=== PATIENT | female | born 1980 | race Caucasian/White ===

== ENCOUNTER 2019-05-13 05:45 | Day surgery (SDC) | payer BC ==
--- NOTE | 2019-05-10 09:58 | RAD REPORT ---
EXAM DESCRIPTION: RAD - Chest Pa And Lat (2 Views) - 05/10/2019 9:49 am CLINICAL HISTORY: pre-op, pending right shoulder surgery COMPARISON: None. TECHNIQUE: PA and lateral views of the chest were obtained. FINDINGS: The lungs are clear. Heart size is normal and central vasculature is within normal limit s. No pleural effusion or pneumothorax seen. No acute bony finding noted. Widening of the left AC j oint is noted. No aortic abnormality. IMPRESSION: No acute cardiopulmonary process.
--- NOTE | 2019-05-10 10:16 | EKG ---
Test Date: 2019-05-10 Test Time: 09:32:45 Demand Equipment Repairer: SHAHNAZ MEASUREMENT RESULTS: Intervals: Rate: 51 NH: 162 QRSD: 82 QT: 458 QTc: 422 [place]: P: 47 NH: 162 QRS: 26 T: 26 INTERPRETIVE STATEMENTS: Sinus bradycardia Otherwise normal ECG No previous ECG available for comparison Electronically Signed On 05-10-19 10:15:54 CDT by Jovanny James
[2019-05-13] MEDS ORDERED: Ringers Lactate 1,000 ML IV ONE ×2 (06:00→07:05)
[2019-05-13] MEDS ORDERED: CEFAZOLIN/SWI 2gm 2 GM/20 ML SYR ONE (06:00)
[2019-05-13] MEDS ORDERED: LIDOCAINE 2% MPF 5 ML VIAL ONE (06:35)
[2019-05-13] MEDS ORDERED: PROPOFOL 200 MG/20 ML VIAL IV ONE (06:35)
[2019-05-13] MEDS ORDERED: FENTANYL CITR 100 MCG/2 ML ONE (06:35)
[2019-05-13] MEDS ORDERED: ROCURONIUM 50 MG/5 ML VIAL IV ONE (06:35)
[2019-05-13] MEDS ORDERED: MIDAZOLAM HCL 2 MG/2 ML INJ ONE (06:35)
[2019-05-13] MEDS ORDERED: ROPLVACAINE HCL 20 ML ONE (06:43)
[2019-05-13] MEDS ORDERED: dexAMETHasone 10 MG/ML VIAL ONE ×2 (06:43→08:00)
[2019-05-13] MEDS ORDERED: EPINEPHRINE/PF 1 MG/ML AMP ONE (07:05)
[2019-05-13] MEDS ORDERED: Phenylephrine HCl 10 MG/ML 1 ML VIAL ONE (07:48)
[2019-05-13] MEDS ORDERED: NS 0.9% VIAL 20 ML ONE (07:48)
[2019-05-13] MEDS ORDERED: KETOROLAC 30 MG/ML INJ ONE (08:00)
[2019-05-13] MEDS ORDERED: EPHEDRINE SULF 50 MG/ML VIAL ONE (08:06)
[2019-05-13] MEDS ORDERED: ONDANSETRON 4 MG/2 ML VIAL ONE (08:06)
[2019-05-13] MEDS ORDERED: GLYCOPYRROLATE 0.2 MG/ML SYR ONE (08:39)
[2019-05-13] MEDS ORDERED: NEOSTIGMINE 1 MG/ML -10 ML VIAL ONE (08:39)
[2019-05-13] MEDS ORDERED: MEPERIDINE HCL 25 MG/0.5 ML ONE (09:27)
--- NOTE | 2019-05-13 10:23 | RAD REPORT ---
EXAM DESCRIPTION: RAD - Shoulder 1 View - 05/13/2019 9:41 am CLINICAL HISTORY: POST RIGHT SHOULDER ARTHROSCOPIC ROTATOR CUFF DEBR COMPARISON: No comparisons FINDINGS: No bone or joint abnormality is seen. Mild soft tissue swelling is evident. Mild atelectas is seen in the right lung base.
--- NOTE | 2019-05-13 10:43 | P.BOP ---
Preoperative diagnosis: right shoulder impingement syndrome, partial rotator cuff tear Postoperative diagnosis: same Primary procedure: right shoulder arthroscopic subacromial decompression Secondary procedure: right shoulder arthroscopic rotator cuff debridement Hand Inserter Operator: NONE,NONE Estimated blood loss: <10 cc Specimen: none Findings: see dictation Anesthesia: General Complications: None Implants: none Fluids & blood products: per anesthesia record Transferred to: Recovery Room Condition: Good
[2019-05-13 11:33] VITALS: TEMP 97
[2019-05-13 11:38] VITALS: BP 133/62; O2SAT 100
--- NOTE | 2019-05-13 23:58 | OP ---
Date of Procedure: 05/13/2019 Surgeon: Bubba Pan MD Preoperative Diagnoses: 1.Right shoulder impingement syndrome. 2.Right shoulder partial rotator cuff tear. Postoperative Diagnoses: 1.Right shoulder impingement syndrome. 2.Right shoulder partial rotator cuff tear. Procedure Performed: 1.Right shoulder arthroscopic rotator cuff debridement. 2.Right shoulder arthroscopic subacromial decompression. Anesthesia: General endotracheal with right-sided interscalene block. Complications: None. Implants: None. Fluids: Per anesthesia record. Estimated Blood Loss: 10 mL. Indication For The Procedure: Rebeca is a 38-year-old female who presented to my clinic with signs and symptoms and x-ray findings and MRI findings consistent with an impingement syndrome and partial rotator cuff tear. She failed conservative treatment measures including exercise program as well as corticosteroid injection. I discussed with the patient at length risks and benefits associated with operative and nonoperative treatment. She expressed understanding and elected to proceed with opera tive treatment. Description Of Procedure: After informed consent was obtained, the patient was identified in the pre operative holding area. The right upper extremity was marked. Patient was then brought back to the PACU where she underwent an interscalene block to the right upper extremity performed by Anesthesia. She was then taken back to the operating room, transferred to the operating table in a supine fashio n, and placed under general endotracheal anesthesia. She was then placed in the beach chair position with her extremities well padded. The right upper extremity was then examined. The patient had ful l range of motion of her shoulder and no instability noted. The right upper extremity was then prepp ed and draped in usual sterile fashion. A time-out was initiated. Correct patient and procedure wer e confirmed and identified. The patient had received preoperative prophylactic antibiotics. Via the posterior portal position, a spinal needle was introduced in the glenohumeral joint and it was injec abdelrahman with 30 mL of normal saline to distend the capsule. A posterior portal was created and an arthro scope was brought in the posterior portal position. An anterior portal was then created under direct visualization and the cannula was placed. Diagnostic arthroscopy was then performed. Patient was n oted to have to overall pristine cartilage in the humeral head and glenoid surface. The anterior and posterior labrum were found to be stable without tear. The superior labrum was also found to be sta ble without tear. The biceps anchor and biceps tendon were found to be without significant tenosynov itis and without any fissuring or fraying, any obvious tear. There were no loose bodies found on the axillary pouch. Subscapularis was found to be intact without tear. Anterior supraspinatus was note d to have some mild fraying consistent with a very small partial thickness undersurface tear which wa s debrided using arthroscopic shaver. The arthroscope was then brought back in the subacromial space . A lateral portal was then created. A subacromial bursectomy was performed using arthroscopic shav er and radiofrequency ablator. The undersurface of the acromion was then debrided using the radiofre quency ablator to clean any soft tissue on the undersurface of the acromion. It was noted that the p atient did have some inferior acromial spurring. Acromioplasty was performed using an arthroscopic b ur and this was used to debride the spurring off the undersurface of the acromion and performed subac romial decompression. The supraspinatus tendon was then fully inspected. There were no significant tearing noted on the bursal side of the supraspinatus tendon and was probed with obturator. Again, n o defects or voids were identified. The arthroscopic instruments were then removed without complicat ion and portals were approximated using a 3-0 Monocryl. Sterile dressings were applied. The patient was awakened and transferred to PACU in stable condition. Postoperative Plan: She will return to clinic next week for wound check. Physical Therapy will be c onsulted to aid with mobilization and she will follow the post decompression protocol. SARIAH/MATT Voice ID: [id number] Report ID: [id number]
--- OUTSIDE RECORDS SUMMARY | 2019-05-22 19:08 | XMS REPORT ---
:1980 Author Organization [employer] Care Team Providers Name Role Phone Bubba Pan Provider Role Unavailable Allergies No Known Allergies Problems Problem Type Condition Code Onset Dates Condition Status Problem Tear of right rotator cuff, M75.101 Active unspecified tear extent Medications No Known Medications Results No Known Results Summary Purpose [employer] Submission
== END 2019-05-13 10:50 | disposition home health service (06) ==
LOC: OR 05:45
PROVIDERS: ATTEND Orthopaedic Surgery Sports Medicine
PROC: 0RNJ4ZZ Release Right Shoulder Joint, Percutaneous Endoscopic Approach (ICD-10-PCS; principal; 2019-05-13 07:30)
DX: M75.111 Incomplete rotator cuff tear or rupture of right shoulder, not specified as traumatic (principal); M75.41 Impingement syndrome of right shoulder; M75.21 Bicipital tendinitis, right shoulder; M75.81 Other shoulder lesions, right shoulder; Z88.8 Allergy status to other drugs, medicaments and biological substances; Z82.49 Family history of ischemic heart disease and other diseases of the circulatory system
CPT/HCPCS: 93005; 71046; 73020; 29822; J2704; J2710; J0171; J2370; J2250; J3010; J1100 ×2; J2175; J2795; J0690; J7120 ×2; J2405